=== PATIENT | female | born 1965 | race Caucasian/White ===

== ENCOUNTER 2016-07-16 16:02 | Emergency (ER) | payer OTHER ==
[2016-07-16] MEDS ORDERED: TYLENOL ONE (16:29)
[2016-07-16] MEDS ORDERED: TYLENOL PO ONE (16:31)
--- NOTE | 2016-07-16 18:41 | Emergency Department Report ---
- General Chief Complaint: Upper Respiratory Infection Stated Complaint: MIGRAINE Time Seen by Provider: 07/16/16 18:25 Source: patient Mode of arrival: Ambulatory Limitations: Language Barrier (patient is with her significant other who is her sign language interpreter.) - History of Present Illness Initial Comments: Patient presents today with body aches, fever, chills, sore throat. She states she went to her primary care physician this morning and was checked for strep and flu which were both negative. She is noted to have a temp of 101.9 and she was given Tylenol, which she states has helped with her headache and body aches. MD Complaint: fever, cough, sore throat -: Gradual, days(s) Severity scale (0 -10): 10 Quality: aching Consistency: constant Improves With: nothing Worsens With: activity Context: sick contacts (her significant other) Associated Symptoms: fever, chills, myalgias, headache, sore throat, cough, nausea - Related Data Allergies Allergy/AdvReac Type Severity Reaction Status Date / Time No Known Allergies Allergy Unverified 07/16/16 16:19 ED Review of Systems ROS: Stated complaint: MIGRAINE Other details as noted in HPI Constitutional: chills, fever Eyes: denies: eye pain, eye discharge, vision change ENT: denies: ear pain, throat pain Respiratory: cough, shortness of breath. denies: wheezing Cardiovascular: denies: chest pain, palpitations Gastrointestinal: nausea. denies: abdominal pain, diarrhea Genitourinary: denies: urgency, dysuria, discharge Musculoskeletal: as per HPI, back pain, myalgia. denies: joint swelling, arthralgia Skin: denies: rash, lesions Neurological: headache. denies: weakness, paresthesias ED Past Medical Hx - Past Medical History Hx Diabetes: Yes Hx Headaches / Migraines: Yes Additional medical history: HIGH CHOLESTEROL - Surgical History Additional Surgical History: LEFT KNEE SURGERY - Social History Smoking Status: Never Smoker Substance Use Type: None ED Physical Exam - General Limitations: Language Barrier General appearance: alert, in no apparent distress, other (ill appearance but nontoxic) - Head Head exam: Present: atraumatic, normocephalic - Eye Eye exam: Present: normal appearance - Expanded Eye Exam Expanded Pupils: Regular, Round: Bilateral, Reactive: Bilateral - ENT ENT exam: Present: mucous membranes moist, TM's normal bilaterally - Expanded ENT Exam Expanded Mouth exam: Present: normal external inspection Teeth exam: Present: normal inspection Throat exam: Positive: normal inspection - Neck Neck exam: Present: normal inspection, tenderness (admits to tenderness in her back from cervical to lumbar region), full ROM. Absent: lymphadenopathy - Respiratory Respiratory exam: Present: normal lung sounds bilaterally. Absent: respiratory distress - Cardiovascular Cardiovascular Exam: Present: regular rate, normal rhythm. Absent: systolic murmur, diastolic murmur, rubs, gallop - GI/Abdominal GI/Abdominal exam: Present: soft, normal bowel sounds - Extremities Exam Extremities exam: Present: normal inspection, full ROM - Back Exam Back exam: Present: normal inspection, full ROM, tenderness - Neurological Exam Neurological exam: Present: alert, oriented X3, normal gait - Psychiatric Psychiatric exam: Present: normal affect, normal mood - Skin Skin exam: Present: warm, dry, intact, normal color. Absent: rash ED Course Vital Signs 07/16/16 07/16/16 16:15 16:33 Temperature 101.9 F H Pulse Rate 92 H Respiratory 20 20 Rate Blood Pressure 139/78 O2 Sat by Pulse 98 Oximetry ED Medical Decision Making - Medical Decision Making Patient presents with flulike symptoms. She went to her primary care physician and had flu and strep which she was told was negative. I will encourage her to fill her ibuprofen prescription from her primary care physician help with body aches and headache. Also encourage increase in fluid intake. - Differential Diagnosis uri, flu Critical Care Time: No Critical care attestation.: If time is entered above; I have spent that time in minutes in the direct care of this critically ill patient, excluding procedure time. ED Disposition Clinical Impression: URI (upper respiratory infection) Disposition: DISCHARGED TO HOME OR SELFCARE Is pt being admited?: No Does the pt Need Aspirin: No Condition: Stable Instructions: Upper Respiratory Infection (ED) Additional Instructions: Encourage rest, fluid intake, and ibuprofen for headache and body aches. Referrals: PRIMARY CARE, [Primary Care Provider] - 3-5 Days Time of Disposition: 18:42
[2016-07-16 18:59] VITALS: BP 129/69
== END 2016-07-16 18:59 | disposition home or self-care (01) ==
LOC: ED 16:02
DX: J06.9 Acute upper respiratory infection, unspecified (principal); E11.9 Type 2 diabetes mellitus without complications; G43.909 Migraine, unspecified, not intractable, without status migrainosus; E78.00 Pure hypercholesterolemia, unspecified
CPT/HCPCS: 99282